=== PATIENT | male | born 1950 | race Caucasian/White ===

== ENCOUNTER → 2017-11-16 | Emergency (ER) | payer OTHER, MEDICARE ==
[~2017-11-16] VITALS: Ht 180.3 cm; Wt 104.5 kg
[~2017-11-16] MED LIST: MECL-111 PO; ONDA4TAB12 PO; TAM75C PO; ipratropium/albuterol 3ml nebule NEB ONE; meclizine 12.5mg tablet PO ONE; normal saline 1000ML IV soln IVB ONE; normal saline 1000ml 1,000 ML IV ONE
[2017-11-16 11:08] LABS: BASOPHILS % (AUTO) 0.3 % (0-1); EOSINOPHILS # (AUTO) 0.1 X10'3 (0-0.9); EOSINOPHILS % (AUTO) 0.8 % (0-6); HEMATOCRIT 43.1 % (42.0-52.0); HEMOGLOBIN 14.6 g/dl (14.0-17.9); LYMPHOCYTES # (AUTO) 1.4 X10'3 (1.1-4.8); MEAN CORPUSCULAR HEMOGLOBIN 30.3 PG (27.0-31.0); MEAN CORPUSCULAR HGB CONC 33.9 % (33.0-36.5); MEAN CORPUSCULAR VOLUME 89.6 FL (78-98); MEAN PLATELET VOLUME 8.7 FL (7.4-10.4); MONOCYTES # (AUTO) 0.5 X10'3 (0-0.9); MONOCYTES % (AUTO) 6.8 % (2-12); NEUTROPHILS # (AUTO) 5.1 X10'3 (1.8-7.7); NEUTROPHILS % (AUTO) 72.1 % (42-75); PLATELET COUNT 198 X10'3 (140-440); RED BLOOD COUNT 4.81 X10'6 (4.70-6.10); RED CELL DISTRIBUTION WIDTH 13.3 % (11.5-14.5); WHITE BLOOD COUNT 7.1 X10'3 (4.5-11.0)
[2017-11-16 11:17] LABS: PROTHROMBIN TIME 10.8 SECONDS (9.0-12.0)
[2017-11-16 11:22] LABS: ALANINE AMINOTRANSFERASE 55 U/L (12-78); ALBUMIN 3.8 G/DL (3.4-5.0); ALKALINE PHOSPHATASE 49 IU/L (46-116); ANION GAP 16 (8-16); ASPARTATE AMINO TRANSFERASE 33 U/L (10-37); BILIRUBIN,TOTAL 0.5 MG/DL (0.1-1.0); BLOOD UREA NITROGEN 57 MG/DL (7-18); BUN/CREATININE RATIO 33.5 (5.4-32.0); CALCIUM 8.9 MG/DL (8.5-10.1); CHLORIDE 98 MMOL/L (99-107); GLUCOSE 167 MG/DL (70-104); POTASSIUM 3.6 MMOL/L (3.5-5.1); SODIUM 136 MMOL/L (135-145); TOTAL CARBON DIOXIDE 22.5 MMOL/L (24-32); TOTAL PROTEIN 7.7 G/DL (6.4-8.2); eGFR 40 ML/MIN
[2017-11-16 13:41] VITALS: BP 110/79
== END | disposition home or self-care (01) ==
LOC: ER 10:13
DX: E86.0 Dehydration (principal); J11.1 Influenza due to unidentified influenza virus with other respiratory manifestations; I48.91 Unspecified atrial fibrillation; E11.9 Type 2 diabetes mellitus without complications; Z88.8 Allergy status to other drugs, medicaments and biological substances; Z79.899 Other long term (current) drug therapy
CPT/HCPCS: 36415; 71046; 80053; 82948; 85025; 85610; 87502; 87503; 93005; 94640; 94760; 96360; 96361; 99285; J7030; J8597

== ENCOUNTER 2018-08-06 19:37 | Emergency (ER) | payer MEDICARE, OTHER ==
[~2018-08-06] VITALS: Ht 180.3 cm; Wt 101.0 kg
[~2018-08-06 19:37] MED LIST changes: +ONDA4TAB6 PO; -TAM75C PO; -ipratropium/albuterol 3ml nebule NEB ONE; -meclizine 12.5mg tablet PO ONE; -normal saline 1000ML IV soln IVB ONE; -normal saline 1000ml 1,000 ML IV ONE
[2018-08-06] MEDS ORDERED: normal saline 1000ML IV soln IVB ONE (21:15)
[2018-08-06 21:40] LABS: BASOPHILS % (AUTO) 0.3 % (0-1); EOSINOPHILS # (AUTO) 0.2 X10'3 (0-0.9); EOSINOPHILS % (AUTO) 2.3 % (0-6); HEMATOCRIT 29.4 % (42.0-52.0); HEMOGLOBIN 10.2 g/dl (14.0-17.9); LYMPHOCYTES % (AUTO) 23.7 % (21-51); MEAN CORPUSCULAR HEMOGLOBIN 31.2 PG (27.0-31.0); MEAN CORPUSCULAR HGB CONC 34.8 % (33.0-36.5); MEAN CORPUSCULAR VOLUME 89.6 FL (78-98); MEAN PLATELET VOLUME 8.2 FL (7.4-10.4); MONOCYTES # (AUTO) 0.8 X10'3 (0-0.9); MONOCYTES % (AUTO) 9.4 % (2-12); NEUTROPHILS # (AUTO) 5.4 X10'3 (1.8-7.7); NEUTROPHILS % (AUTO) 64.3 % (42-75); PLATELET COUNT 225 X10'3 (140-440); RED BLOOD COUNT 3.27 X10'6 (4.70-6.10); RED CELL DISTRIBUTION WIDTH 14.4 % (11.5-14.5); WHITE BLOOD COUNT 8.5 X10'3 (4.5-11.0)
[2018-08-06 21:52] LABS: PARTIAL THROMBOPLASTIN TIME 25 SECONDS (22-32); PROTHROMBIN TIME 10.4 SECONDS (9.0-12.0)
[2018-08-06 21:56] LABS: ALANINE AMINOTRANSFERASE 35 U/L (12-78); ALBUMIN 3.5 G/DL (3.4-5.0); ALKALINE PHOSPHATASE 79 IU/L (46-116); ANION GAP 11 (8-16); ASPARTATE AMINO TRANSFERASE 18 U/L (10-37); BILIRUBIN,TOTAL 0.3 MG/DL (0.1-1.0); BLOOD UREA NITROGEN 32 MG/DL (7-18); CALCIUM 9.2 MG/DL (8.5-10.1); CHLORIDE 105 MMOL/L (99-107); CREATININE 1.68 MG/DL (0.60-1.10); GLUCOSE 157 MG/DL (70-104); POTASSIUM 4.3 MMOL/L (3.5-5.1); SODIUM 144 MMOL/L (135-145); TOTAL CARBON DIOXIDE 27.9 MMOL/L (24-32); TOTAL PROTEIN 6.9 G/DL (6.4-8.2); eGFR 41 ML/MIN
[2018-08-06 22:06] LABS: CREATINE KINASE 38 U/L (39-308); ETHANOL < 0.010 GM/DL (0.0-0.010); MAGNESIUM 1.4 MG/DL (1.5-2.4); PHOSPHORUS 3.5 MG/DL (2.3-4.5)
[2018-08-06 22:08] LABS: ACETAMINOPHEN < 2.0 UG/ML (10-30)
[2018-08-06 22:34] LABS: CLARITY,URINE CLEAR (Clear); COLOR,URINE YELLOW (Yellow); GLUCOSE, URINE NEGATIVE (Neg); KETONES,URINE NEGATIVE (Neg); LEUKOCYTE ESTERASE ,URINE NEGATIVE (Neg); NITRITES, URINE NEGATIVE (Neg); OCCULT BLOOD,URINE NEGATIVE (Neg); PROTEIN,URINE NEGATIVE (Neg); UA COLLECTION TYPE CLN CATCH MIDSTREAM; UROBILINOGEN,URINE 0.2 E.U/dL (0.2-1.0)
[2018-08-06 22:47] LABS: URINE AMPHETAMINE SCREEN NEGATIVE (Neg); URINE BARBITUATE SCREEN NEGATIVE (Neg); URINE BENZODIAZEPINES SCREEN NEGATIVE (Neg); URINE CANNABINOID SCREEN NEGATIVE (Neg); URINE COCAINE SCREEN NEGATIVE (Neg); URINE METHADONE SCREEN NEGATIVE (Neg); URINE OPIATE SCREEN NEGATIVE (Neg); URINE PHENCYCLIDINE SCREEN NEGATIVE (Neg)
[2018-08-06 23:37] VITALS: BP 122/65
== END 2018-08-06 23:39 | disposition home or self-care (01) ==
LOC: ER 19:37
DX: E86.0 Dehydration (principal); I48.91 Unspecified atrial fibrillation; I10 Essential (primary) hypertension; E11.9 Type 2 diabetes mellitus without complications; Z90.49 Acquired absence of other specified parts of digestive tract; Z98.890 Other specified postprocedural states; Z88.8 Allergy status to other drugs, medicaments and biological substances; Z79.899 Other long term (current) drug therapy
CPT/HCPCS: 36415; 71045; 80053; 80305; 80320; 80329; 81003; 82140; 82550; 83735; 84100; 84443; 84484; 85025; 85610; 85730; 93005; 99285; J7030; 96374

== ENCOUNTER 2018-09-30 16:37 | Inpatient (IN) | payer MEDICARE, OTHER ==
[~2018-09-30] VITALS: Ht 180.3 cm; Wt 100.0 kg
[2018-09-30] MEDS ORDERED: normal saline 1000ML IV soln IVB ONE ×2 (16:55→17:50)
[2018-09-30] MEDS ORDERED: meclizine 12.5mg tablet PO ONE (16:55)
[2018-09-30] MEDS ORDERED: ondansetron/PF 4mg/2ml inj IV ONE (16:55)
[2018-09-30 17:31] LABS: BASOPHILS % (AUTO) 0.3 % (0-1); EOSINOPHILS # (AUTO) 0.1 X10'3 (0-0.9); EOSINOPHILS % (AUTO) 1.3 % (0-6); HEMATOCRIT 35.5 % (42.0-52.0); LYMPHOCYTES # (AUTO) 1.7 X10'3 (1.1-4.8); MEAN CORPUSCULAR HEMOGLOBIN 29.8 PG (27.0-31.0); MEAN CORPUSCULAR HGB CONC 33.8 % (33.0-36.5); MEAN CORPUSCULAR VOLUME 88.1 FL (78-98); MEAN PLATELET VOLUME 8.5 FL (7.4-10.4); MONOCYTES # (AUTO) 0.6 X10'3 (0-0.9); MONOCYTES % (AUTO) 6.6 % (2-12); NEUTROPHILS # (AUTO) 6.1 X10'3 (1.8-7.7); NEUTROPHILS % (AUTO) 71.8 % (42-75); PLATELET COUNT 238 X10'3 (140-440); RED BLOOD COUNT 4.03 X10'6 (4.70-6.10); RED CELL DISTRIBUTION WIDTH 14.7 % (11.5-14.5); WHITE BLOOD COUNT 8.5 X10'3 (4.5-11.0)
[2018-09-30 17:45] LABS: ALANINE AMINOTRANSFERASE 63 U/L (12-78); ALBUMIN 3.4 G/DL (3.4-5.0); ALBUMIN/GLOBULIN RATIO 1.1 (1.1-1.5); ALKALINE PHOSPHATASE 61 IU/L (46-116); ANION GAP 13 (8-16); ASPARTATE AMINO TRANSFERASE 35 U/L (10-37); BILIRUBIN,TOTAL 0.5 MG/DL (0.1-1.0); BLOOD UREA NITROGEN 47 MG/DL (7-18); BUN/CREATININE RATIO 8.4 (5.4-32.0); CHLORIDE 97 MMOL/L (99-107); CREATININE 5.62 MG/DL (0.60-1.10); GLUCOSE 131 MG/DL (70-104); POTASSIUM 3.4 MMOL/L (3.5-5.1); SODIUM 137 MMOL/L (135-145); TOTAL CARBON DIOXIDE 27.2 MMOL/L (24-32); TOTAL PROTEIN 6.4 G/DL (6.4-8.2); eGFR 10 ML/MIN
[2018-09-30 17:51] LABS: MAGNESIUM 1.2 MG/DL (1.5-2.4)
[2018-09-30] MEDS ORDERED: METF500T PO (18:35)
[2018-09-30] MEDS ORDERED: ATOR10TA87 PO (18:35)
[2018-09-30] MEDS ORDERED: DABI150C PO (18:35)
[2018-09-30] MEDS ORDERED: CHLO25TA10 PEG (18:35)
[2018-09-30] MEDS ORDERED: LISI40TA4 PO (18:35)
[2018-09-30] MEDS ORDERED: normal saline 1000ml 1,000 ML IV ONE (19:50)
[2018-09-30] MEDS ORDERED: MESSAGE TO PHARMACY PO ONE (20:05)
[2018-09-30] MEDS ORDERED: magnesium 1gm/100ml D5W IVPB 100 ML IV PRN (20:05)
[2018-09-30] MEDS ORDERED: HYDROcodone/acetaminophen 5mg/325mg tablet PO PRN (20:05)
[2018-09-30] MEDS ORDERED: acetaminophen 325mg tablet PO PRN ×2 (20:05)
[2018-09-30] MEDS ORDERED: insulin Lispro (HumaLOG) vial - multi-dose SQ SCH (20:05)
[2018-09-30] MEDS ORDERED: ondansetron/PF 4mg/2ml inj IV PRN (20:05)
[2018-09-30] MEDS ORDERED: mag hydrox/Alum hydrox/simeth 30ml oral suspension PO PRN (20:05)
[2018-09-30] MEDS ORDERED: magnesium hydroxide 30ml (MOM) UD suspension PO PRN (20:05)
[2018-09-30] MEDS ORDERED: dextrose ORAL solution 15 GM/59 ML bottle PO PRN ×2 (20:05)
[2018-09-30] MEDS ORDERED: dextrose 50%-water 50ml dispensing syringe IV PRN ×2 (20:05)
[2018-09-30] MEDS ORDERED: glucagon, human recombinant 1mg kit SUBCUT PRN (20:05)
[2018-09-30] MEDS ORDERED: magnesium 4gm in 100ml NS 100 ML IV PRN (20:05)
[2018-09-30 20:29] LABS: HEMOGLOBIN A1C 6.7 % (4.5-6.2)
[2018-09-30 20:55] VITALS: BP 107/59
[2018-09-30] MEDS ORDERED: temazepam 15mg capsule PO PRN (21:00)
[2018-09-30] MEDS: insulin glargine (Lantus) pen - multi-dose SQ SCH (21:00)
[2018-09-30] MEDS: normal saline 1000ml 1,000 ML IV SCH (21:37)
[2018-09-30] MEDS: magnesium Cl slow-release 64mg tablet PO PRN (21:47)
[2018-10-01] MEDS: normal saline 1000ml 1,000 ML IV SCH ×4 (02:44→22:44)
[2018-10-01 06:00] VITALS: BP 93/58
[2018-10-01 07:16] LABS: ANION GAP 12 (8-16); BLOOD UREA NITROGEN 42 MG/DL (7-18); BUN/CREATININE RATIO 13.7 (5.4-32.0); CHLORIDE 103 MMOL/L (99-107); CREATININE 3.06 MG/DL (0.60-1.10); GLUCOSE 93 MG/DL (70-104); MAGNESIUM 1.3 MG/DL (1.5-2.4); POTASSIUM 3.1 MMOL/L (3.5-5.1); SODIUM 141 MMOL/L (135-145); TOTAL CARBON DIOXIDE 26.2 MMOL/L (24-32); eGFR 20 ML/MIN
[2018-10-01 07:21] LABS: BASOPHILS % (AUTO) 0.2 % (0-1); EOSINOPHILS # (AUTO) 0.1 X10'3 (0-0.9); EOSINOPHILS % (AUTO) 2.4 % (0-6); HEMATOCRIT 31.3 % (42.0-52.0); HEMOGLOBIN 10.6 g/dl (14.0-17.9); LYMPHOCYTES # (AUTO) 1.7 X10'3 (1.1-4.8); LYMPHOCYTES % (AUTO) 28.6 % (21-51); MEAN CORPUSCULAR HEMOGLOBIN 30.2 PG (27.0-31.0); MEAN PLATELET VOLUME 8.6 FL (7.4-10.4); MONOCYTES # (AUTO) 0.4 X10'3 (0-0.9); MONOCYTES % (AUTO) 7.3 % (2-12); NEUTROPHILS # (AUTO) 3.6 X10'3 (1.8-7.7); NEUTROPHILS % (AUTO) 61.5 % (42-75); PLATELET COUNT 196 X10'3 (140-440); RED BLOOD COUNT 3.51 X10'6 (4.70-6.10); RED CELL DISTRIBUTION WIDTH 14.5 % (11.5-14.5); WHITE BLOOD COUNT 5.9 X10'3 (4.5-11.0)
[2018-10-01 07:31] LABS: PHOSPHORUS 3.4 MG/DL (2.3-4.5)
[2018-10-01] MEDS: atorvastatin 10mg tablet PO SCH (07:54)
[2018-10-01] MEDS ORDERED: potassium Cl 20 mEq SR tablet PO STA (08:18)
[2018-10-01] MEDS: magnesium Cl slow-release 64mg tablet PO PRN ×2 (09:09→19:56)
[2018-10-01] MEDS: dabigatran 150mg capsule PO SCH ×2 (09:09→16:41)
[2018-10-01 11:43] VITALS: BP 91/59
[2018-10-01 15:52] VITALS: BP 94/57
[2018-10-01 19:00] VITALS: BP 104/60
[2018-10-01] MEDS: insulin glargine (Lantus) pen - multi-dose SQ SCH (21:00)
[2018-10-01 23:00] VITALS: BP 122/70
[2018-10-02 03:00] VITALS: BP 116/63
[2018-10-02] MEDS: normal saline 1000ml 1,000 ML IV SCH ×2 (04:36→06:40)
[2018-10-02 06:53] LABS: BASOPHILS % (AUTO) 0.3 % (0-1); EOSINOPHILS # (AUTO) 0.1 X10'3 (0-0.9); EOSINOPHILS % (AUTO) 2.2 % (0-6); HEMATOCRIT 31.1 % (42.0-52.0); HEMOGLOBIN 10.6 g/dl (14.0-17.9); LYMPHOCYTES # (AUTO) 1.3 X10'3 (1.1-4.8); LYMPHOCYTES % (AUTO) 21.8 % (21-51); MEAN CORPUSCULAR HEMOGLOBIN 30.1 PG (27.0-31.0); MEAN CORPUSCULAR HGB CONC 34.1 % (33.0-36.5); MEAN CORPUSCULAR VOLUME 88.4 FL (78-98); MEAN PLATELET VOLUME 8.7 FL (7.4-10.4); MONOCYTES # (AUTO) 0.5 X10'3 (0-0.9); MONOCYTES % (AUTO) 7.8 % (2-12); NEUTROPHILS # (AUTO) 4.1 X10'3 (1.8-7.7); NEUTROPHILS % (AUTO) 67.9 % (42-75); PLATELET COUNT 187 X10'3 (140-440); RED BLOOD COUNT 3.52 X10'6 (4.70-6.10); RED CELL DISTRIBUTION WIDTH 14.8 % (11.5-14.5); WHITE BLOOD COUNT 6.1 X10'3 (4.5-11.0)
[2018-10-02 07:02] LABS: ALBUMIN 2.9 G/DL (3.4-5.0); ANION GAP 10 (8-16); BLOOD UREA NITROGEN 25 MG/DL (7-18); CALCIUM 8.4 MG/DL (8.5-10.1); CHLORIDE 109 MMOL/L (99-107); CREATININE 1.67 MG/DL (0.60-1.10); GLUCOSE 105 MG/DL (70-104); MAGNESIUM 1.1 MG/DL (1.5-2.4); PHOSPHORUS 1.9 MG/DL (2.3-4.5); POTASSIUM 3.5 MMOL/L (3.5-5.1); SODIUM 145 MMOL/L (135-145); TOTAL CARBON DIOXIDE 26.3 MMOL/L (24-32); eGFR 41 ML/MIN
[2018-10-02] MEDS: magnesium Cl slow-release 64mg tablet PO PRN (07:41)
[2018-10-02] MEDS: atorvastatin 10mg tablet PO SCH (07:41)
[2018-10-02] MEDS: dabigatran 150mg capsule PO SCH (07:41)
[2018-10-02 08:20] VITALS: BP 126/82
== END 2018-10-02 11:30 | disposition home or self-care (01) | DRG 74 ==
LOC: ER 16:37 → ED HOLD 20:04 → ORTHO 4S 20:56 → PCU 3S 10-01 09:30
PROVIDERS: ADMIT Hospitalist; ATTEND Family Medicine
DX: G90.8 Other disorders of autonomic nervous system (principal); N17.9 Acute kidney failure, unspecified; E87.6 Hypokalemia; E86.0 Dehydration; I48.2 Chronic atrial fibrillation; D64.9 Anemia, unspecified; E11.22 Type 2 diabetes mellitus with diabetic chronic kidney disease; E11.40 Type 2 diabetes mellitus with diabetic neuropathy, unspecified; E78.00 Pure hypercholesterolemia, unspecified; W18.39XA Other fall on same level, initial encounter; N18.3 Chronic kidney disease, stage 3 (moderate); I12.9 Hypertensive chronic kidney disease with stage 1 through stage 4 chronic kidney disease, or unspecified chronic kidney disease; G89.29 Other chronic pain; M54.9 Dorsalgia, unspecified; I95.9 Hypotension, unspecified; Z90.49 Acquired absence of other specified parts of digestive tract; Z98.1 Arthrodesis status; Z88.8 Allergy status to other drugs, medicaments and biological substances; Z79.01 Long term (current) use of anticoagulants; Z79.84 Long term (current) use of oral hypoglycemic drugs; Z79.899 Other long term (current) drug therapy; Z87.891 Personal history of nicotine dependence; Y93.89 Activity, other specified; Y92.89 Other specified places as the place of occurrence of the external cause; Y99.8 Other external cause status
CPT/HCPCS: 36415; 70450; 71045; 76775; 80048; 80053; 82607; 82948; 83036; 83735; 83880; 84100; 84132; 84484; 84630; 85025; 87070; 93005; 96361; 96374; 99285; G0378; J1815; J2405; J7030; J8597

== ENCOUNTER 2022-01-22 09:20 | Emergency (ER) | payer OTHER, MEDICARE ==
[~2022-01-22] VITALS: Ht 177.8 cm; Wt 106.4 kg
[~2022-01-22 09:20] MED LIST changes: +ATOR10TA87 PO; +DABI150C PO; -MECL-111 PO; -ONDA4TAB12 PO; -ONDA4TAB6 PO
--- NOTE | 2022-01-22 09:40 | NUR ---
Reported trauma status of pt to Dr. Bhatti. Received VO for x-ray bilat knees and R shoulder. Pt placed in room 11
--- NOTE | 2022-01-22 11:09 | NUR ---
PT STATED THAT HE IS IN LOT OF PAIN AT THIS TIME AND NEED SOME PAIN MEDS.PT REFUSED IT EARLIER WHEN ASKED.PT STATED" I CAN TAKE ORAL PILL OR IM SHOT, ANYTHING".NOTIFIED THE MD.
[2022-01-22] MEDS ORDERED: HYDR-3972 PO (11:17)
[2022-01-22] MEDS ORDERED: HYDROcodone/acetaminophen 10/325mg tab PO ONE (11:20)
[2022-01-22] MEDS ORDERED: TETanus/Pertussis (Acell)/Diphther VAC/PF (Tdap-Adult) 0.5ml syringe IMVAC ONE (11:35)
[2022-01-22 11:48] VITALS: BP 151/100
== END 2022-01-22 11:51 | disposition home or self-care (01) ==
LOC: ER 09:21
DX: S80.02XA Contusion of left knee, initial encounter (principal); S80.01XA Contusion of right knee, initial encounter; S49.91XA Unspecified injury of right shoulder and upper arm, initial encounter; S80.212A Abrasion, left knee, initial encounter; S80.211A Abrasion, right knee, initial encounter; M25.561 Pain in right knee; M25.562 Pain in left knee; M25.511 Pain in right shoulder; I48.91 Unspecified atrial fibrillation; I10 Essential (primary) hypertension; E11.9 Type 2 diabetes mellitus without complications; G89.29 Other chronic pain; Z90.49 Acquired absence of other specified parts of digestive tract; Z98.890 Other specified postprocedural states; Z20.3 Contact with and (suspected) exposure to rabies; Z88.8 Allergy status to other drugs, medicaments and biological substances; Z79.899 Other long term (current) drug therapy; W19.XXXA Unspecified fall, initial encounter; Y93.89 Activity, other specified; Y92.89 Other specified places as the place of occurrence of the external cause; Y99.8 Other external cause status
CPT/HCPCS: 73030; 73564; 90471; 90715; 99284